=== PATIENT | male | born 1990 | race Caucasian/White ===

== ENCOUNTER 2021-12-05 11:13 | Emergency (ER) | payer SELFPAY ==
[~2021-12-05] VITALS: Ht 149.9 cm; Wt 49.9 kg
[2021-12-05 11:13] VITALS: BP_SYST 128
--- NOTE | 2021-12-05 11:13 | NUR ---
BROUGHT IN BY MARTIN FOURNIER TO [facility] AND TRIAGED. REPORT GIVEN TO ROBEL
--- NOTE | 2021-12-05 11:18 | NUR ---
ER DR. OGDEN EXAMINING PT
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
[2021-12-05 11:49] VITALS: BP_SYST 128
--- NOTE | 2021-12-05 11:50 | NUR ---
Patient given written and verbal discharge instructions and verbalizes understanding. ER MD discussed with patient the results and treatment provided. Patient in stable condition. ID arm band removed. NO Rx given. Patient educated on pain management and to follow up with PMD. Pain Scale 0/10. Opportunity for questions provided and answered. Medication side effect fact sheet provided.
== END 2021-12-05 11:50 ==
LOC: SED 11:13
DX: S50.312A Abrasion of left elbow, initial encounter (principal); F15.90 Other stimulant use, unspecified, uncomplicated; X58.XXXA Exposure to other specified factors, initial encounter; Y93.89 Activity, other specified; Y92.89 Other specified places as the place of occurrence of the external cause; Y99.8 Other external cause status
CPT/HCPCS: 99283